=== PATIENT | male | born 1940 | race Caucasian/White ===

== ENCOUNTER 2018-05-01 11:18 | Day surgery (SDC) | payer MEDICARE, OTHER, SELFPAY ==
--- NOTE | 2018-04-26 16:59 | PM.PREOP ---
Pre-operative Note Interval Note Pre-op Check: Yes History & Physical Reviewed by Physician Changes: No
[2018-05-01 11:57] VITALS: BP 149/90; PULSE 72; RESP 15; TEMP 36.2; O2SAT 99
[2018-05-01] MEDS: PROPARACAINE 0.5% OPHTH SOL 2 DROPS EYE-OP (11:58)
[2018-05-01 11:59] VITALS: BMI 25.4
[2018-05-01] MEDS: CATARACT EYE COMPOUND (10 DROPS/SYRINGE) 3 DROPS EYE-OP (12:00)
[2018-05-01 12:17] VITALS: BMI 25.4
[2018-05-01] MEDS: BALANCED SALT IRRIG SOLN NO.2 15 ML IRRIG.SOLN IRR (12:32)
[2018-05-01] MEDS: CHONDROIDTIN/SOD HYALURONATE 1.05 ML SYRINGE INTRAOCULA (12:33)
[2018-05-01] MEDS: HYALURONATE SODIUM 10 MG/ML SYRINGE INJ (12:34)
[2018-05-01] MEDS: LIDOCAINE 1% W/EPI INJ 20 ML INJ (12:34)
[2018-05-01] MEDS: MOXIFLOXACIN OPHTH DROPS 3 ML BOTTLE 2 DROPS INJ (12:35)
[2018-05-01] MEDS: NEOMYCIN/POLY/DEX OPHTH OINT 1 APPLIC EYE-RIGHT (12:35)
[2018-05-01] MEDS: OFLOXACIN 0.3% OPHTH 5 ML 2 DROPS EYE-RIGHT (12:36)
[2018-05-01] MEDS: PHENYLEPHRINE/LIDOCAINE VIAL (OR) 0.2 ML EYE-OP (12:38)
[2018-05-01] MEDS: BALANCED SALT IRRIG SOLN NO.2 500 ML, EPINEPHrine 1 MG IRR (12:39)
[2018-05-01] MEDS: TRIAMCINOLONE 50 MG/5 ML VIAL INJ (12:39)
[2018-05-01] MEDS: LIDOCAINE 2% 4 ML, BUPIVACAINE 0.5% (PF) 4 ML, HYALURONIDASE 150 UNIT INJ (12:40)
[2018-05-01 13:10] VITALS: BP 125/83; PULSE 66; RESP 20; TEMP 36.7; O2SAT 99
--- NOTE | 2018-05-01 15:28 | PM.OP.1 ---
Operative Date/Time/Diagnoses Date of procedure: 05/01/18 Time of procedure: 12:15 Procedure & Clinicians Procedure: Date of service: [] Preoperative diagnoses: 1. Right [] Cataract Postoperative diagnoses: 1. Cataract nuclear sclerotic cortical. 2. Astigmatism which he likes to correct the toric intra-ocular lens implant. Procedure: Phacoemulsification with posterior chamber intraocular lens implant Surgeon: Valarie Johnson MD Complications: none Specimen: None Implant:[id number] [place] 054 Blood loss: None Anesthesia: Retrobulbar with monitored standby Anesthesiologist: [place] Gibbons M.D. Description of procedure: Patient is an [age] year old male with decreased vision due to cataract which is affecting activities of daily living. He wants surgery to improve vision. He wants a distance target with astigmatism correction. He has taken to the operating room and given IV sedation. Proparacaine drops were placed and indelible ink george were placed at the 90 and 180 degree meridian in a sitting position. He was placed on the operating room table. A retrobulbar block insert consisting of 6 cc of 2% xylocaine without epinephrine mixed half and half with 0.5% Marcaine with 1 cc of hyaluronidase added is placed between the medial and lateral 1/3 of the inferior orbital rim. Lid akinesia is obtain with 1% xylocaine with epinephrine infiltrated along the lid margin. The eye is manually massaged for 30 sec, prepped using Betadine solution, and draped in the usual sterile fashion. Temporal approach was made, a 1 mm side-port incision was made at the 7:30 position. Phenylephrine 1.5% mixed with 1% xylocaine 0.2 cc was placed into the anterior chamber. Viscoat followed by Brenda was then placed. A 2.6 mm clear incision with a 2.6 mm blade was placed at the 170 degree meridian. A 360 degree capsulorrhexis style capsulotomy was then performed with a cystitome needle on a [place]. Hydrodelineation and hydrodissection were performed. The phacoemulsification unit is introduced, and sculpting notice used to groove the central lens. It is then removed in chopping mode. Epi nucleus is removed with epinuclear mode and irrigation aspiration was used to remove the peripheral cortex. The posterior capsule is polished. The intraocular lens is selected, inspected, power confirmed, and placed in the posterior chamber at the 54 degree meridian using corneal markers. The pupil was not constricted. The wound was stromally hydrated and tested for leaks, there was none and was left sutureless. Vigamox 0.1 cc was placed into the anterior chamber. Kenalog 0.2 cc was placed in the superior subconjunctival space. A drop of antibiotic and was placed and the eye was patched and shielded. The patient was stable and returned to the recovery room in excellent condition. Dictated by: Valarie Johnson MD Copy to: [facility]
== END 2018-05-01 13:22 | disposition home or self-care (01) ==
LOC: OR 11:23
PROVIDERS: Visit Provider Ophthalmology
DX: H25.11 Age-related nuclear cataract, right eye (principal); H52.201 Unspecified astigmatism, right eye
CPT/HCPCS: J0171; J2250; J3010; J3301; J3470; V2787